=== PATIENT | female | born 1965 | race Caucasian/White ===

== ENCOUNTER 2020-12-30 21:37 | Emergency (ER) | payer OTHER ==
[2020-12-30 22:39] LABS: BASOPHIL 0.2 % (0-2); EOSINOPHIL 0.2 % (0-5); HCT 41.8 % (37.0-47.0); LYMPHOCYTE 27.9 % (15-48); MCH 30.2 pg (25.0-31.0); MCHC 33.5 g/dL (32.0-36.0); MCV 90.3 fL (78.0-100.0); MONOCYTE 8.9 % (0-12); MPV 10.2 fL (6.0-9.5); NEUTROPHIL 62.4 % (41-80); NRBC 0; PLT 154 K/uL (150-400); RBC 4.63 M/uL (4.20-5.40); RDW 12.8 % (11.5-14.0); WBC 4.6 K/uL (4.0-10.5)
[2020-12-30 22:54] LABS: ALBUMIN 3.3 g/dL (3.4-5.0); BILIRUBIN - TOTAL 0.6 mg/dL (0.2-1.0); BUN/CREAT RATIO (CALC) 13.8 RATIO; CREATININE 0.58 mg/dL (0.51-0.95); GLOBULIN (CALCULATION) 3.8 g/dL; POTASSIUM 3.9 mmol/L (3.5-5.1); TOTAL PROTEIN 7.1 g/dL (6.4-8.2)
[2020-12-30] MEDS ORDERED: ZOFRAN4 M1 PO (23:03)
[2020-12-30] MEDS ORDERED: VENTOLIN HFA IN18 GM INH (23:03)
== END 2020-12-30 23:47 | disposition home or self-care (01) ==
LOC: FER 21:37
PROVIDERS: Nurse Practitioner Family
DX: R05 Cough (principal); R06.02 Shortness of breath; R11.2 Nausea with vomiting, unspecified; R50.9 Fever, unspecified; Z98.890 Other specified postprocedural states; Z88.0 Allergy status to penicillin
CPT/HCPCS: 36415; 71045; 80053; 85025; J2405; J7030